=== PATIENT | female | born 1985 | race African-American/Black ===

== ENCOUNTER 2019-04-19 02:37 | Emergency (ER) | payer MEDICAID ==
[~2019-04-19] VITALS: Ht 152.4 cm; Wt 107.2 kg
[2019-04-19] MEDS ORDERED: ACETAMINOPHEN 500MG TABLET PO ONE (03:30)
[2019-04-19] MEDS ORDERED: LIDOCAINE HCL/PF 1% 10 MG/ML 5ML VIAL IJ ONE (03:30)
[2019-04-19] MEDS ORDERED: TETANUS, DIPHTHERIA, PERTUSSIS VAC/PF 0.5ML (>7YR OLD) IM ONE (03:30)
[2019-04-19 05:39] VITALS: BP 139/80
== END 2019-04-19 05:43 | disposition home or self-care (01) ==
LOC: ER 02:37
DX: S61.011A Laceration without foreign body of right thumb without damage to nail, initial encounter (principal); J45.909 Unspecified asthma, uncomplicated; F17.200 Nicotine dependence, unspecified, uncomplicated; W26.8XXA Contact with other sharp object(s), not elsewhere classified, initial encounter; Y93.G1 Activity, food preparation and clean up; Y92.89 Other specified places as the place of occurrence of the external cause; Y99.8 Other external cause status
CPT/HCPCS: 12002; 73130; 81025; 90471; 90715; 99283; J3490

== ENCOUNTER 2019-05-06 10:11 | Emergency (ER) | payer MEDICAID ==
[~2019-05-06] VITALS: Ht 162.6 cm; Wt 107.0 kg
[2019-05-06 10:57] VITALS: BP 145/84
== END 2019-05-06 10:58 | disposition home or self-care (01) ==
LOC: ER 10:11
DX: S61.411D Laceration without foreign body of right hand, subsequent encounter (principal); X58.XXXD Exposure to other specified factors, subsequent encounter; J45.909 Unspecified asthma, uncomplicated; F12.10 Cannabis abuse, uncomplicated; Z87.19 Personal history of other diseases of the digestive system; Z90.49 Acquired absence of other specified parts of digestive tract
CPT/HCPCS: 99283

== ENCOUNTER 2024-09-09 17:24 | Emergency (ER) | payer MEDICAID, OTHER ==
[~2024-09-09] VITALS: Ht 167.6 cm; Wt 80.0 kg
[2024-09-09] MEDS ORDERED: IPRATROPIUM BROMIDE (0.02%) 0.5MG/2.5ML NEB HHN STA (17:39)
[2024-09-09] MEDS ORDERED: PREDNISONE 20MG TABLET PO STA (17:39)
[2024-09-09] MEDS: METHYLPREDNISOLONE SOD SUCC 125MG/2ML (ACT-O-VIAL) IV ONE (19:10)
[2024-09-09] MEDS: MAGNESIUM 2 G PREMIX 50 ML IV ONE (19:21)
[2024-09-09 19:27] VITALS: PULSE 127; RESP 17; O2SAT 99
[2024-09-09] MEDS: IPRATROPIUM BROMIDE (0.02%) 0.5MG/2.5ML NEB HHN NR (19:27)
[2024-09-09] MEDS: ALBUTEROL (0.083%) 2.5MG/3ML NEB HHN SCH (19:28)
[2024-09-09 19:34] VITALS: TEMP 36.94740
[2024-09-09 19:55] VITALS: PULSE 121; RESP 23; O2SAT 100
[2024-09-09 20:28] VITALS: PULSE 121; RESP 19; O2SAT 99
[2024-09-09 20:53] LABS: CHLORIDE 106 mEq/L (98-107); POTASSIUM 3.5 mEq/L (3.5-5.1); SODIUM 139 mEq/L (136-145)
[2024-09-09 20:54] LABS: CARBON DIOXIDE 24 mEq/L (21-32); DIFFERENTIAL COMMENT 1; HEMATOCRIT. 33.7 % (36.0-48.0); HEMOGLOBIN. 11.4 g/dL (12.0-16.0); MEAN CORPUSCULAR HGB CONC 33.8 g/dL (31.0-37.0); MEAN CORPUSCULAR VOLUME 88.7 fL (81.0-99.0); PLATELET 352 x1000/uL (130-400); RED BLOOD CELL COUNT 3.79 mill/uL (4.2-5.4); WHITE BLOOD COUNT 10.6 x1000/uL (4.5-11.0)
[2024-09-09 20:55] LABS: CALCIUM 8.9 mg/dL (8.7-10.4)
[2024-09-09 21:00] LABS: CREATININE 0.6 mg/dL (0.6-1.0); GLUCOSE 143 mg/dL (70-105); UREA NITROGEN BLOOD 5 mg/dL (9-23)
[2024-09-09] MEDS ORDERED: GUAI-450 MT (21:13)
[2024-09-09] MEDS ORDERED: P50 MT (21:13)
[2024-09-09] MEDS ORDERED: ALBU18HF2 IH (21:13)
[2024-09-09] MEDS: GUAIFENESIN 200MG/10ML SUGAR FREE UDC PO ONE (21:59)
[2024-09-09] MEDS: ACETAMINOPHEN 325MG TABLET PO ONE (22:00)
[2024-09-09 23:08] VITALS: BP 124/63; PULSE 108; RESP 13; O2SAT 96
[2024-09-10 00:26] LABS: ANISOCYTOSIS 1+; PLATELET ESTIMATE NORMAL
== END 2024-09-09 23:00 | disposition home or self-care (01) ==
LOC: ER 17:24
DX: J45.901 Unspecified asthma with (acute) exacerbation (principal); Z90.49 Acquired absence of other specified parts of digestive tract
CPT/HCPCS: 80048; 83880; 85025; 36415; 94640; 93005; 96365; 96375; 99285; J3475; J2919; Z7610 ×7